=== PATIENT | female | born 1975 | race Two or more races ===

== ENCOUNTER 2018-09-20 11:24 | Emergency (ER) | payer SELFPAY ==
[~2018-09-20] VITALS: Ht 170.2 cm; Wt 109.8 kg
[2018-09-20 12:11] LABS: BILIRUBIN,URINE SMALL (NEG); CLARITY,URINE CLOUDY; COLOR,URINE RED; NITRITE,URINE NEGATIVE (NEG); PH,URINE 6.5; PROTEIN,URINE 30 mg/dL (NEG-TRACE)
[2018-09-20] MEDS ORDERED: IBUPROFEN 400 MG TABLET. PO ONE (12:15)
--- NOTE | 2018-09-20 12:24 | PHYS DOC ---
Past Medical History Past Medical History: Diabetes-Type II, Other Additional Past Medical Histor: vertigo Past Surgical History: Cholecystectomy, Tubal ligation, Other Additional Past Surgical Histo: hernia repair Alcohol Use: None Drug Use: None Adult General Chief Complaint Chief Complaint: VAGINAL BLEEDING HPI HPI Patient is a 43 year old female who presents with lower abdominal pelvic cramping with vaginal bleeding for the last 6 days. Patient states her periods usually don't last that long. Patient states her last menstrual period was August 01. Patient states she's used 8 pads in last 24 hours. Patient states she feels like this. It is heavier than usual there are no clots. Patient has had a tubal ligation has history of diabetes and vertigo. Patient rates her pain a 4 out of 10. Patient asking for ibuprofen to treat pain. Review of Systems Review of Systems Constitutional: Denies fever or chills [] Eyes: Denies change in visual acuity, redness, or eye pain [] HENT: Denies nasal congestion or sore throat [] Respiratory: Denies cough or shortness of breath [] Cardiovascular: No additional information not addressed in HPI [] GI: Right and left lower abdominal pain, denies nausea, vomiting, bloody stools or diarrhea [] : Denies dysuria or hematuria [] Musculoskeletal: Denies back pain or joint pain [] Integument: Denies rash or skin lesions [] Neurologic: Denies headache, focal weakness or sensory changes [] All other systems were reviewed and found to be within normal limits, except as documented in this note. Current Medications Current Medications Current Medications Medications (Trade) Dose Ordered Sig/Ferny Start Time Stop Time Status Last Admin Dose Admin Ibuprofen (Motrin) 600 mg 1X ONCE 09/20/18 12:30 09/20/18 12:33 DC 09/20/18 12:48 600 MG Allergies Allergies Allergies Coded Allergies Type Severity Reaction Last Updated Verified No Known Drug Allergies 03/16/14 No Physical Exam Physical Exam Constitutional: Well developed, well nourished, no acute distress, non-toxic appearance. [] HENT: Normocephalic, atraumatic, bilateral external ears normal, oropharynx moist, no oral exudates, nose normal. [] Eyes: PERRLA, EOMI, conjunctiva normal, no discharge. [] Neck: Normal range of motion, no tenderness, supple, no stridor. [] Cardiovascular:Heart rate regular rhythm, no murmur [] Lungs & Thorax: Bilateral breath sounds clear to auscultation [] Abdomen: Bowel sounds normal, soft, right and left lower tenderness, no masses, no pulsatile masses. [] Skin: Warm, dry, no erythema, no rash. [] Back: No tenderness, no CVA tenderness. [] Extremities: No tenderness, no cyanosis, no clubbing, ROM intact, no edema. [] Neurologic: Alert and oriented X 3, normal motor function, normal sensory function, no focal deficits noted. [] Psychologic: Affect normal, judgement normal, mood normal. [] Current Patient Data Vital Signs Vital Signs Date Time Temp Pulse Resp B/P (MAP) Pulse Ox O2 Delivery O2 Flow Rate FiO2 09/20/18 12:30 84 18 113/58 (76) 99 Room Air 09/20/18 11:30 98.3 98.3 Lab Values Laboratory Tests Test 09/20/18 11:32 09/20/18 11:40 09/20/18 12:15 Urine Collection Type Unknown Urine Color Red Urine Clarity Cloudy Urine pH 6.5 Urine Specific [place] 1.025 Urine Protein 30 mg/dL (NEG-TRACE) Urine Glucose (UA) Negative mg/dL (NEG) Urine Ketones (Stick) Trace mg/dL (NEG) Urine Blood Large (NEG) Urine Nitrite Negative (NEG) Urine Bilirubin Small (NEG) Urine Urobilinogen Dipstick 1.0 mg/dL (0.2 mg/dL) Urine Leukocyte Esterase Small (NEG) Urine RBC >40 /HPF (0-2) Urine WBC 1-4 /HPF (0-4) Urine Squamous Epithelial Cells Occ /LPF Urine Bacteria 0 /HPF (0-FEW) POC Urine HCG, Qualitative Hcg negative (Negative) White Blood Count 10.0 x10^3/uL (4.0-11.0) Red Blood Count 4.48 x10^6/uL (3.50-5.40) Hemoglobin 13.7 g/dL (12.0-15.5) Hematocrit 40.9 % (36.0-47.0) Mean Corpuscular Volume 91 fL (79-100) Mean Corpuscular Hemoglobin 31 pg (25-35) Mean Corpuscular Hemoglobin Concent 33 g/dL (31-37) Red Cell Distribution Width 14.2 % (11.5-14.5) Platelet Count 226 x10^3/uL (140-400) Neutrophils (%) (Auto) 78 % (31-73) H Lymphocytes (%) (Auto) 15 % (24-48) L Monocytes (%) (Auto) 5 % (0-9) Eosinophils (%) (Auto) 2 % (0-3) Basophils (%) (Auto) 1 % (0-3) Neutrophils # (Auto) 7.8 x10^3uL (1.8-7.7) H Lymphocytes # (Auto) 1.5 x10^3/uL (1.0-4.8) Monocytes # (Auto) 0.5 x10^3/uL (0.0-1.1) Eosinophils # (Auto) 0.2 x10^3/uL (0.0-0.7) Basophils # (Auto) 0.1 x10^3/uL (0.0-0.2) Sodium Level 143 mmol/L (136-145) Potassium Level 3.7 mmol/L (3.5-5.1) Chloride Level 106 mmol/L (98-107) Carbon Dioxide Level 26 mmol/L (21-32) Anion Gap 11 (6-14) Blood Urea Nitrogen 11 mg/dL (7-20) Creatinine 0.8 mg/dL (0.6-1.0) Estimated GFR (Cockcroft-Gault) 78.7 BUN/Creatinine Ratio 14 (6-20) Glucose Level 118 mg/dL (70-99) H Calcium Level 8.6 mg/dL (8.5-10.1) Total Bilirubin 0.3 mg/dL (0.2-1.0) Aspartate Amino Transferase (AST) 8 U/L (15-37) L Alanine Aminotransferase (ALT) 13 U/L (14-59) L Alkaline Phosphatase 82 U/L (46-116) Total Protein 6.6 g/dL (6.4-8.2) Albumin 3.4 g/dL (3.4-5.0) Albumin/Globulin Ratio 1.1 (1.0-1.7) Lipase 81 U/L (73-393) Laboratory Tests 09/20/18 12:15 Laboratory Tests 09/20/18 12:15 Microbiology 09/20/18 Wet Prep - Final, Complete EKG EKG [] Radiology/Procedures Radiology/Procedures [] Impressions: [facility] [address] [place] [address] IMAGING REPORT Signed PATIENT: ALYSON JEAN ACCOUNT: [id number] : 1975 LOCATION: ER AGE: 43 SEX: F EXAM STATUS: REG ER ORD. PHYSICIAN: JULIA VALLEJO APRN REASON: lower abdominal pain and pelvic pain, increased vaginal bleeding PROCEDURE: PELVIS W/TV Pelvic ultrasound Clinical Indication:VAG BLEEDING/PELVIC PAIN. . Transabdominal findings Uterus measures 8.0 x 4.1 x 6.1 cm. Endometrial stripe measures 13 mm. Ovaries not visualized Endovaginal scan Endometrial stripe measures 7 mm. Uterus is homogeneous. Left ovary measures 3.1 cm. Small left ovarian cysts are identified, largest measures 18 mm. Intact blood supply to the left ovary. Right ovary measures 2.3 cm with intact blood supply. No significant free fluid. IMPRESSION: 1. Small left ovarian cysts. 2. Mild endometrial thickening on the transabdominal images, could be related to menstrual phase. Electronically signed by: Julio C Barbosa MD (09/20/2018 1:10 PM) [facility] DICTATED and SIGNED BY: JULIO C BARBOSA MD DATE: 09/20/18 1310 Course & Med Decision Making Course & Med Decision Making Patient is a 43 year old female who presents with lower abdominal pelvic cramping with vaginal bleeding for the last 6 days. Patient states her periods usually don't last that long. Patient states her last menstrual period was August 01. Patient states she's used 8 pads in last 24 hours. Patient states she feels like this. It is heavier than usual there are no clots. Patient has had a tubal ligation has history of diabetes and vertigo. Patient rates her pain a 4 out of 10. Patient asking for ibuprofen to treat pain. Alert and oriented. Vital signs within normal limits. Afebrile. Abdomen is soft and tender to right and left lower abdomen with palpation. Patient states that mainly her pain is on the left lower side. Patient denies nausea, vomiting, diarrhea, fever, chest pain, shortness of air. She states she is eating and drinking appropriately. Patient states that she has no worries about sexual transmitted diseases but states I can swabbed her and sent off cultures. Patient does not feel she needs to be treated for them at this time. Lungs are clear to auscultation all lobes. Heart rate regular without murmur. CT ABD PELV shows 1. Small left ovarian cysts. 2. Mild endometrial thickening on the transabdominal images, could be related to menstrual phase. Blood work unremarkable. Wet Prep shows bacterial vaginosis. Follow up with a electromechanical assembler as soon as possible. Take Ibuprofen for pain. Pelvic Exam: Press Service Reader present Abdomen: Right and left lower tenderness External Genitalia: Normal Skin Speculum: Normal vaginal mucosa, bloody cervical discharge Bimanual: No adnexal masses or tenderness, No CMT Dragon Disclaimer Dragon Disclaimer This electronic medical record was generated, in whole or in part, using a voice recognition dictation system. Departure Departure Impression: Primary Impression: Vaginal bleeding Additional Impression: Bacterial vaginosis Disposition: 01 HOME, SELF-CARE Condition: STABLE Referrals: NO PCP (PCP) XIOMARA SNOW Jr, MD Patient Instructions: Abdominal Pain (Nonspecific), Bacterial Vaginosis, Ovarian Cyst Additional Instructions: Follow up with electromechanical assembler. Take Ibuprofen for pain and try using a heating pad. Scripts Metronidazole (METRONIDAZOLE) 500 Mg Tablet 1 TAB PO BID, #14 TAB Prov: JULIA VALLEJO APRN 09/20/18 Problem Qualifiers JULIA VALLEJO APRN Sep 20, 2018 12:24
[2018-09-20] MEDS ORDERED: IBUPROFEN 200 MG TABLET. PO ONE (12:30)
[2018-09-20 12:32] LABS: BASO # 0.1 x10^3/uL (0.0-0.2); BASO % 1 % (0-3); EOS # 0.2 x10^3/uL (0.0-0.7); EOS % 2 % (0-3); HEMATOCRIT 40.9 % (36.0-47.0); HEMOGLOBIN 13.7 g/dL (12.0-15.5); LYMPH # 1.5 x10^3/uL (1.0-4.8); LYMPH % 15 % (24-48); MEAN CORPUSCULAR HEMOGLOBIN 31 pg (25-35); MEAN CORPUSCULAR HGB CONC 33 g/dL (31-37); MEAN CORPUSCULAR VOLUME 91 fL (79-100); MONO # 0.5 x10^3/uL (0.0-1.1); MONO % 5 % (0-9); NEUT # 7.8 x10^3uL (1.8-7.7); NEUT % 78 % (31-73); PLATELET COUNT 226 x10^3/uL (140-400); RED BLOOD COUNT 4.48 x10^6/uL (3.50-5.40); RED CELL DISTRIBUTION WIDTH 14.2 % (11.5-14.5)
[2018-09-20 12:34] LABS: BACTERIA,URINE 0 /HPF (0-FEW); RBC,URINE >40 /HPF (0-2)
[2018-09-20 12:35] LABS: SQUAMOUS EPITHELIAL CELL,UR OCC /LPF
[2018-09-20 12:42] LABS: CALCIUM 8.6 mg/dL (8.5-10.1); CREATININE 0.8 mg/dL (0.6-1.0); GFR 78.7; POTASSIUM 3.7 mmol/L (3.5-5.1)
[2018-09-20 12:48] LABS: ALBUMIN 3.4 g/dL (3.4-5.0); ALBUMIN/GLOBULIN RATIO 1.1 (1.0-1.7); TOTAL BILIRUBIN 0.3 mg/dL (0.2-1.0); TOTAL PROTEIN 6.6 g/dL (6.4-8.2)
--- NOTE | 2018-09-20 13:13 | RAD ---
Pelvic ultrasound Clinical Indication:VAG BLEEDING/PELVIC PAIN. . Transabdominal findings Uterus measures 8.0 x 4.1 x 6.1 cm. Endometrial stripe measures 13 mm. Ovaries not visualized Endovaginal scan Endometrial stripe measures 7 mm. Uterus is homogeneous. Left ovary measures 3.1 cm. Small left ovarian cysts are identified, largest measures 18 mm. Intact blood supply to the left ovary. Right ovary measures 2.3 cm with intact blood supply. No significant free fluid. IMPRESSION: 1. Small left ovarian cysts. 2. Mild endometrial thickening on the transabdominal images, could be related to menstrual phase. Electronically signed by: Julio C Barbosa MD (09/20/2018 1:10 PM) [facility]
[2018-09-20] MEDS ORDERED: METR-34 PO (13:49)
[2018-09-20 13:55] VITALS: BP 110/71
[2018-09-22 14:19] LABS: GC PROBE Negative (Negative)
== END 2018-09-20 13:55 | disposition home or self-care (01) ==
LOC: ER 11:24
DX: N76.0 Acute vaginitis (principal); B96.89 Other specified bacterial agents as the cause of diseases classified elsewhere; R10.32 Left lower quadrant pain; R10.2 Pelvic and perineal pain; Z90.49 Acquired absence of other specified parts of digestive tract; Z98.51 Tubal ligation status
CPT/HCPCS: 36415; 76830; 76856; 80053; 81001; 81025; 83690; 85025; 99284; Q0111; 87086; 87491; 87591